=== PATIENT | female | born 1970 | race Hispanic/Latino ===

== ENCOUNTER 2016-11-14 09:09 | Outpatient (CLI) | payer MEDICAID ==
--- NOTE | 2016-11-14 11:01 | Mammography Report ---
BILATERAL MAMMOGRAM: FINDINGS: There are scattered fibroglandular densities (approximately 25%-50% glandular). No mass, distortion, suspicious calcification, or skin change is seen. CAD was utilized. IMPRESSION: Negative mammogram. There is no mammographic evidence of malignancy. RECOMMENDATION: Follow-up per ACS guidelines. BI-RADS CATEGORY: 1 = Negative ACR BI-RADS MAMMOGRAPHIC CODES: 0 = Needs additional imaging evaluation; 1 = Negative; 2 = Benign; 3 = Probably benign; 4 = Suspicious; 5 = Malignant; 6 = Known biopsy-proven malignancy COMMENT: 1. Dense breast tissue, i.e., adenosis, fibrocystic changes, etc., may obscure an underlying neoplasm. 2. Approximately 10% of cancers are not detected with mammography. 3. A negative mammography report should not delay biopsy if a clinically suspicious mass is present. COMMENT: Patient follow-up letters are generated in [employer].
== END 2016-11-14 09:10 | disposition home or self-care (01) ==
LOC: MAMMO 09:09
PROVIDERS: ATTEND Internal Medicine
DX: Z12.31 Encounter for screening mammogram for malignant neoplasm of breast (principal)
CPT/HCPCS: 77067; G0202

== ENCOUNTER 2019-12-30 21:49 | Emergency (ER) | payer MEDICAID ==
[2019-12-30 22:10] VITALS: BP 104/62
--- NOTE | 2019-12-30 22:27 | Emergency Department Report ---
Blank Doc - Documentation Documentation: 49-year-old female that presents with medical clearance from [facility]. This initial assessment/diagnostic orders/clinical plan/treatment(s) is/are subject to change based on patient's health status, clinical progression and re- assessment by fellow clinical providers in the ED. Further treatment and workup at subsequent clinical providers discretion. Patient/guardians urged not to elope from the ED as their condition may be serious if not clinically assessed and managed. Initial orders include: 1- Patient sent to [facility] for further evaluation and treatment 2- labs 3- UA
[2019-12-30 22:55] LABS: Basophils # (Auto) 0.1 K/mm3 (0.0-0.1); Basophils % (Auto) 0.9 % (0.0-1.8); Eosinophils # (Auto) 0.2 K/mm3 (0.0-0.4); Eosinophils % (Auto) 2.5 % (0.0-4.3); Hematocrit 41.8 % (30.3-42.9); Hemoglobin 13.6 gm/dl (10.1-14.3); Lymphocytes # (Auto) 1.6 K/mm3 (1.2-5.4); Lymphocytes % (Auto) 21.3 % (13.4-35.0); Mean Corpuscular HGB Conc 33 % (30-34); Mean Corpuscular Volume 96 fl (79-97); Monocytes # (Auto) 0.3 K/mm3 (0.0-0.8); Monocytes % (Auto) 3.6 % (0.0-7.3); Platelet Count 214 K/mm3 (140-440); Red Blood Count 4.35 M/mm3 (3.65-5.03)
[2019-12-30 23:08] LABS: Red Cell Distribution Width 22.1 % (13.2-15.2)
[2019-12-30 23:22] LABS: Alanine Aminotransferase 15 units/L (7-56); Albumin 4.4 g/dL (3.9-5); BUN/Creatinine Ratio 22; Blood Urea Nitrogen 11 mg/dL (7-17); Calcium 8.7 mg/dL (8.4-10.2); Hemolysis Index 15
[2019-12-31 00:12] LABS: Bacteria,Urine 2+ /HPF (Negative); Bilirubin,Urine NEG (Negative); Blood,Urine NEG (Negative); Color,Urine Amber (Yellow); Mucus,Urine 1+ /HPF; Urobilinogen,Urine < 2.0 mg/dL (<2.0)
[2019-12-31 00:18] LABS: Amphetamine Screen,Urine PRESUMPTIVE NEGATIVE; Benzodiazepines Screen,Urine PRESUMPTIVE NEGATIVE; Cannabinoid Screen,Urine PRESUMPTIVE NEGATIVE; Cocaine Screen,Urine PRESUMPTIVE NEGATIVE; Methadone Screen,Urine PRESUMPTIVE NEGATIVE; Opiate Screen,Urine PRESUMPTIVE NEGATIVE
--- NOTE | 2019-12-31 01:23 | Emergency Department Report ---
ED Medical Clearance HPI - General Chief complaint: Medical Clearance Stated complaint: MEDICAL CLEARANCE Time Seen by Provider: 12/30/19 22:26 Source: patient Mode of arrival: Ambulatory - History of Present Illness Initial comments: Patient is 49 years old female with history of chronic alcoholism. Patient referred from [facility] for medical clearance for possible inpatient admission for rehab. Patient stated that she has been drinking daily for approximately 1 year since her . Patient denied any drug abuse. Patient is also complaining of generalized body pain, stating that she was diagnosed with peripheral neuropathy. Patient denies any recent injury. Patient denied any suicidal, homicidal ideation. No visual or auditory hallucination. MD Complaint: medical clearance request Reason for Medical Clearance: intoxication Traumatic Symptoms: denies traumatic injury Allergies/Adverse reactions: Allergies Allergy/AdvReac Type Severity Reaction Status Date / Time No Known Allergies Allergy Unverified 11/14/16 09:10 ED Review of Systems ROS: Stated complaint: MEDICAL CLEARANCE Other details as noted in HPI Comment: All other systems reviewed and negative Constitutional: denies: chills, fever Respiratory: denies: cough, shortness of breath, SOB with exertion Cardiovascular: denies: chest pain, palpitations Gastrointestinal: denies: abdominal pain, nausea Musculoskeletal: denies: back pain Neurological: denies: headache, weakness, numbness, confusion Psychiatric: denies: depression, auditory hallucinations, visual hallucinations, homicidal thoughts, suicidal thoughts ED Past Medical Hx - Past Medical History Previous Medical History?: Yes Hx of Cancer: Yes Additional medical history: ANEMIA, NEUROPATHY - Surgical History Past Surgical History?: Yes Additional Surgical History: Back, Gastric Bypass - Social History Smoking Status: Current Every Day Smoker Substance Use Type: Alcohol ED Physical Exam - General Limitations: No Limitations General appearance: alert, in no apparent distress - Head Head exam: Present: atraumatic, normocephalic, normal inspection - Eye Eye exam: Present: normal appearance, PERRL - ENT ENT exam: Present: normal exam, normal orophraynx, mucous membranes moist - Neck Neck exam: Present: normal inspection, full ROM. Absent: tenderness, meningismus, lymphadenopathy, thyromegaly - Respiratory Respiratory exam: Present: normal lung sounds bilaterally - Cardiovascular Cardiovascular Exam: Present: regular rate, normal rhythm, normal heart sounds - GI/Abdominal GI/Abdominal exam: Present: soft, normal bowel sounds. Absent: distended, tenderness, guarding, rebound, rigid, organomegaly, mass, bruit, pulsatile mass, hernia - Extremities Exam Extremities exam: Present: normal inspection, full ROM, normal capillary refill. Absent: pedal edema, calf tenderness - Back Exam Back exam: Present: normal inspection, full ROM. Absent: CVA tenderness (R), CVA tenderness (L) - Neurological Exam Neurological exam: Present: alert, oriented X3, CN II-XII intact, normal gait, reflexes normal - Psychiatric Psychiatric exam: Absent: depressed, agitated, anxious, flat affect, manic, homicidal ideation, suicidal ideation - Skin Skin exam: Present: warm, intact, normal color ED Course Vital Signs 12/30/19 22:09 Temperature 97.8 F Pulse Rate 105 H Respiratory 20 Rate Blood Pressure 104/62 O2 Sat by Pulse 96 Oximetry ED Medical Decision Making - Lab Data Result diagrams: 12/30/19 22:31 12/30/19 22:31 - Medical Decision Making Patient is 49 years old female with history of chronic alcoholism. Patient referred from [facility] for medical clearance for possible inpatient admission for rehab. Patient stated that she has been drinking daily for approximately 1 year since her . Patient denied any drug abuse. Patient is also complaining of generalized body pain, stating that she was diagnosed with peripheral neuropathy. Patient denies any recent injury. Patient denied any suicidal, homicidal ideation. No visual or auditory hallucination. Labs reviewed and is unremarkable except for slightly elevated alcohol level. Patient received Toradol 60 IM for pain. No evidence of delirium tremens. Patient is medically clear to be admitted to a psychiatric facility for alcohol rehab. ED Disposition Clinical Impression: Alcohol dependence, Encounter for alcohol rehabilitation, Peripheral neuropathy Disposition: [id number] PSY HOSP/PSY UNIT Is pt being admited?: No Condition: Stable Instructions: Abuse of Alcohol (ED), Medical Clearance for Substance Abuse Tr eatment (ED), Peripheral Neuropathy (ED) Additional Instructions: Patient is medically clear to be admitted to a psychiatric facility for alcohol rehab. Referrals: PRIMARY CARE, [Primary Care Provider] - 3-5 Days
[2019-12-31] MEDS ORDERED: KETOROLAC 60 MG/2 ML INJ IM ONE (01:25)
== END 2019-12-31 02:05 ==
LOC: ED 21:49
DX: F10.239 Alcohol dependence with withdrawal, unspecified (principal); G62.89 Other specified polyneuropathies; F17.200 Nicotine dependence, unspecified, uncomplicated; Z86.2 Personal history of diseases of the blood and blood-forming organs and certain disorders involving the immune mechanism; Z79.899 Other long term (current) drug therapy
CPT/HCPCS: 36415; 80053; 80307; 81001; 85025; 96372; 99283; J1885; 80320; G0480

== ENCOUNTER 2020-03-30 22:48 | Emergency (ER) | payer MEDICAID ==
[2020-03-30] MEDS ORDERED: ASPIRIN 325 MG TAB PO ONE (22:56)
--- NOTE | 2020-03-30 23:38 | XRay Report ---
CHEST 1 VIEW INDICATION / CLINICAL INFORMATION: Chest Pain. COMPARISON: None available. FINDINGS: SUPPORT DEVICES: None. HEART / MEDIASTINUM: No significant abnormality. LUNGS / PLEURA: No significant pulmonary or pleural abnormality.. No pneumothorax. ADDITIONAL FINDINGS: No significant additional findings. IMPRESSION: 1. No acute findings. Signer Name: Tra Parsons MD Signed: 03/30/2020 11:34 PM Workstation Name: [id number]
[2020-03-30 23:59] VITALS: BP 166/93
[2020-03-31] LABS: Basophils # (Auto) 0.1 K/mm3 (0.0-0.1); Basophils % (Auto) 0.9 % (0.0-1.8); Eosinophils % (Auto) 0.7 % (0.0-4.3); Hematocrit 40.7 % (30.3-42.9); Hemoglobin 14.1 gm/dl (10.1-14.3); Lymphocytes # (Auto) 1.2 K/mm3 (1.2-5.4); Lymphocytes % (Auto) 17.8 % (13.4-35.0); Mean Corpuscular HGB Conc 35 % (30-34); Mean Corpuscular Volume 90 fl (79-97); Monocytes # (Auto) 0.4 K/mm3 (0.0-0.8); Monocytes % (Auto) 5.9 % (0.0-7.3); Platelet Count 219 K/mm3 (140-440); Red Blood Count 4.54 M/mm3 (3.65-5.03); Red Cell Distribution Width 15.5 % (13.2-15.2)
[2020-03-31 00:19] LABS: BUN/Creatinine Ratio 28; Blood Urea Nitrogen 14 mg/dL (7-17); Hemolysis Index 10
== END 2020-03-31 03:43 | disposition left against medical advice (07) ==
LOC: ED 22:48
DX: R07.9 Chest pain, unspecified (principal); Z53.21 Procedure and treatment not carried out due to patient leaving prior to being seen by health care provider
CPT/HCPCS: 36415; 71045; 80048; 84484; 85025; 93005

== ENCOUNTER 2021-08-22 09:35 | Outpatient (CLI) | payer MEDICAID ==
--- NOTE | 2021-08-22 11:06 | XRay Report ---
LEFT FOOT 3 VIEWS INDICATION: LEFT FOOT PAIN. COMPARISON: None. IMPRESSION: An oblique mildly displaced fracture is identified in the distal shaft of the fifth meta tarsal. There is suggestion of an underlying bone cyst or other lesion at the fracture site. This cou ld represent a pathologic fracture. Mild callus formation is suggested which is consistent with a sub acute fracture. The remaining bony structures are intact. No significant joint pathology. Moderate pl gregorio spur is noted. There is mild diffuse soft tissue swelling. Signer Name: Dany Ramirez Jr, MD Signed: 08/22/2021 11:01 AM Workstation Name: [id number]
--- NOTE | 2021-08-22 11:07 | XRay Report ---
BILATERAL SHOULDERS 3 VIEWS INDICATION: BILATERAL SHOULDER PAIN. COMPARISON: None. IMPRESSION: No acute osseous or soft tissue abnormality. Minimal osteoarthritic changes are noted at both shoulders. Signer Name: Dany Ramirez Jr, MD Signed: 08/22/2021 11:03 AM Workstation Name: [id number]
== END 2021-08-22 09:36 | disposition home or self-care (01) ==
LOC: XRAY 09:35
PROVIDERS: ATTEND Orthopaedic Surgery
DX: S62.327A Displaced fracture of shaft of fifth metacarpal bone, left hand, initial encounter for closed fracture (principal); M25.511 Pain in right shoulder; M19.012 Primary osteoarthritis, left shoulder; M19.011 Primary osteoarthritis, right shoulder; M79.89 Other specified soft tissue disorders; M76.52 Patellar tendinitis, left knee; X58.XXXA Exposure to other specified factors, initial encounter; Y93.89 Activity, other specified; Y92.89 Other specified places as the place of occurrence of the external cause; Y99.8 Other external cause status